=== PATIENT | female | born 1945 | race Caucasian/White ===

== ENCOUNTER → 2016-10-24 | Outpatient (CLI) | payer OTHER ==
[~2016-10-24] MED LIST: ALEVE220 M1 PO; ALIGN4 MG PO; ASPIRIN PO; AUGMENTIN400 MG PO; CALCIUM + D 6001 TA1 PO; CLARITIN10 M2 PO; CLARITIN10 M3 PO; CLARITIN10 MG PO; CLEOCIN PO; FISH OIL 1,0001 CAP PO; FLAGYL250 MG PO; FLOMAX0.4 M1 PO; FLONASE 0.05% N16 G1 NS; FLONASE16 GM; GLUCOSAMINE500 M2 PO; LEVAQUIN PO; LINZESS290 MCG PO; LIPITOR PO; LORTAB 7.5-3251 EACH PO; NORVASC PO; OMEGA Q PO; VITAMIN C500 M1 PO; VITAMIN D/CALCIUM PO; VITAMIN D1000 UNIT PO
--- NOTE | ~2016-10-24 | HM ---
Unit #: [id number] #: [id number] Patient: APRIL BLACK [id number] [address] [address] [id number] O MR#: [id number] NAME: APRIL BLACK. : 1945 SEX: F STUDY DATE/TIME: 10/24/2016 UNIT: CEKG ROOM: STUDY DESCRIPTION: Holter Attending Physician: Jr Greer M.D. Referring Physician: Jr Greer M.D. Primary Care Physician: Jr Greer M.D. CARDIOLOGY REPORT EXAM Holter monitor. DATE APPLIED 10/24/2016 DATE SCANNED 10/26/[address] rJ Greer READ BY Dr. Galan INDICATION Dysrhythmia COMMENTS The patient's Holter was monitored for 24 hours. Underlying rhythm is sinus with average heart rate of 73 beats per minute. The patient has few PVCs and PACs. No other abnormality was detected. CONCLUSION Normal Holter monitor. Dictated by... Jimenez Wolf/devika TD: 10/30/2016 04:11 JOB #: [id number] Unit #: [id number] #: [id number] Patient: APRIL BLACK CARDIOLOGY REPORT X Kodak Galan MD HOLTER MONITOR REPORT
== END | disposition home or self-care (01) ==
LOC: CEKG 09:39
DX: I49.9 Cardiac arrhythmia, unspecified (principal)
CPT/HCPCS: 93225; 93226

== ENCOUNTER → 2016-11-12 | Outpatient (CLI) | payer OTHER ==
--- NOTE | ~2016-11-12 | CT2 ---
[facility] A Service of [facility] & [facility] RADIOLOGY TEXT RESULTS PATIENT: APRIL BLACK LOCATION: CCAT : 43 UNIT #: [id number] AGE: [address]: Jesus Alexander MD SEX: F ORDER DR: [id number] [facility] [address] [place], [place] [address] [id number] O MR#: [id number] Acc #: [id number] NAME: APRIL BLACK : 1945 SEX: F STUDY DATE/TIME: 11/12/2016 10:46 UNIT: CCAT ROOM: STUDY DESCRIPTION: CT Abd and Pelv W Cont Attending Physician: Jesus Alexander M.D. Ordering Physician: Jesus Alexander M.D. Primary Care Physician: Jr Greer M.D. MEDICAL IMAGING REPORT This report is preliminary unless electronic signature is present EXAM CT abdomen and pelvis with contrast INDICATIONS Debris in urine since July 2016. Gross hematuria since July 2016. Concern for fistula. PROCEDURE Contrast-enhanced CT abdomen and pelvis. 100 mL of Isovue-370. This CT exam was performed with one or more of the following radiation dose reduction techniques: automatic exposure control, adjustment of mA and/or kV according to patient size, and iterative reconstruction. COMPARISON 08/01/2016 FINDINGS Abdomen with contrast: Included lung bases are clear. The liver, spleen, kidneys, adrenal glands, show no acute abnormality. 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 Previous cholecystectomy, no significant bile duct dilation. Sigmoid diverticulosis. There is diffuse thickening in the sigmoid colon, similar to the prior. There is a somewhat linear area of thickening with a few foci of air extending from the left inferior margin of the aqk-sm-mxibrm sigmoid colon extending towards the left side of the dome of the bladder. It measures approximately 2 cm in length. This is slightly smaller than on the previous study when it had the has appearance of a small abscess. Pelvis with contrast: A few small nodes extending from the sigmoid colon into the mesentery are similar to the prior, presumed reactive. No free pelvic fluid. There is a 7 mm calculus dependently in the bladder. There [facility] A Service of [facility] & [facility] RADIOLOGY TEXT RESULTS PATIENT: APRIL BLACK LOCATION: CCAT : 43 UNIT #: [id number] AGE: [address]: Jesus Alexander MD SEX: F ORDER DR: is a moderate amount of air in the bladder. No aggressive appearing bone lesion. IMPRESSION 1. Extensive sigmoid diverticulosis with diffuse thickening. This appearance is similar to the prior probably predominately represents chronic inflammation, but difficult to exclude an acute component. 2. Linear thick-walled structure extending from the distal sigmoid colon to the left side of the dome of the bladder contains a few tiny foci of air. There is also moderate amount of air in the bladder. This is suspicious for a patent, cold vesicle fistula. 3. Other findings detailed above. Dictated by... Hugo Buck M.D. THIS IS AN ELECTRONICALLY VERIFIED REPORT Hugo Buck M.D. at 11/13/2016 7:05 AM EED/ruby TD: 11/12/2016 13:38 JOB #: [id number] MEDICAL IMAGING REPORT Page 1 of 1 COPY
[2016-11-12 10:36] LABS: POC - CREATININE 0.82 mg/dL (0.44-1.03); POC - GFR >60.0 mL/min (>60)
== END | disposition home or self-care (01) ==
LOC: CCAT 09:08
PROVIDERS: Urology
DX: R31.0 Gross hematuria (principal); K57.30 Diverticulosis of large intestine without perforation or abscess without bleeding
CPT/HCPCS: 74177; 82565; Q9967

== ENCOUNTER 2017-01-03 05:34 | Inpatient (IN) | payer OTHER ==
--- NOTE | ~2017-01-03 | DS ---
Unit #: [id number] #: [id number] Patient: APRIL BLACK [id number] [facility]. [address] [address] [id number] I MR#: [id number] NAME: APRIL BLACK ROOM: 469 Age: 71 Sex: F Admission Date: 01/03/2017 : 1945 Discharge Date: 01/10/2017 Attending Physician: Randal Salinas Jr., M.D. Primary Care Physician: Jr Greer M.D. DISCHARGE SUMMARY HISTORY AND HOSPITAL COURSE Ms. Black is a 71-year-old female who developed colovesical fistula and was brought in the morning of surgery where she underwent sigmoid colon resection and takedown of the colovesical fistula. Postoperatively she had a generally unremarkable course. She regained bowel function without difficulty and was able to be advanced to a regular diet. She was ambulating independently. The patient had a catheter for 7 days at the recommendation of urology. At that time a cystogram showed no leak and healing of the bladder. The patient then had the Epperson catheter removed. The patient has a history of a neurogenic bladder and self caths at home. Today, she will be discharged home in stable condition. She is tolerating a diet and ambulating independently. She was told not to do any lifting or strenuous activity. She can use a laxative as needed and resume all of her home medications. She is to call the office and follow up with Dr. Salinas in 1-2 weeks. A prescription for hydrocodone was left for pain control. Patient understood these instructions and will be discharged home in stable condition. Dictated by... Keegan Carter M.D. ANA ROSA/lizandro TD: 01/11/2017 08:37 JOB #: [id number] DISCHARGE SUMMARY Page 1 of 1 X Keegan Carter MD X DISCHARGE SUMMARY
--- NOTE | ~2017-01-03 | CO ---
Unit #: [id number] #: [id number] Patient: APRIL BLACK [id number] [address] [place], [place] [address] [id number] I MR#: [id number] NAME: APRIL BLACK. ROOM: 469 Age: 71 Sex: F Admission Date: 01/03/2017 : 1945 Attending Physician: Randal Salinas Jr., M.D. Primary Care Physician: Jr Greer M.D. CONSULTATION REPORT REASON FOR HOSPITALIZATION The patient is a 71-year-old white female with history of hypertension, hiatal hernia, lumbar spinal stenosis, neurogenic bladder, chronic diverticulitis, hyperlipidemia, incomplete right bundle-branch block, multinodular goiter, irritable bowel syndrome with chronic constipation. She was recently admitted for acute kidney injury with bilateral hydronephrosis secondary to neurogenic bladder. She had a bladder pacemaker placed and intermittent catheterization since that period of time. Late last year, she developed diverticulitis that was resistant to antibiotic therapy, had multiple rounds, eventually improved, but then began to notice fiber and stool-like material in her urine, was seen by Dr. Alexander, and Dr. Salinas found her to have a colovesicular fistula and admitted for repair of same with a sigmoid resection of the area of diverticulitis. This was all performed yesterday. Currently, the patient is postop day #1, awake, alert, oriented x3, in no acute distress, and I am consulted for medical management. ALLERGIES She has stated allergies to sulfa drugs. MEDICATIONS Her medications prior to admission: Lipitor 10 mg q.h.s., aspirin 81 mg p.o. daily, Flonase 2 sprays in both nostrils daily, Linzess 290 mcg daily, vitamin D 1000 units daily, vitamin C 500 mg daily, Aleve one tablet b.i.d., Norvasc 10 mg q.h.s., Claritin 10 mg daily. PAST SURGICAL HISTORY She has had a prior right arthroscopy in the right knee, cholecystectomy, bilateral cataract surgery, bladder pacemaker, and the above-mentioned surgery that was performed yesterday for colovesicular fistula and sigmoid resection. PAST MEDICAL HISTORY Hypertension, multinodular goiter, irritable bowel syndrome, diverticulosis, diverticulitis, hyperlipidemia, lumbar spinal stenosis, incomplete right bundle-branch block. SOCIAL HISTORY . Nonsmoker, nondrinker. No street drug use. Retired. Cares for elderly , who has Parkinson syndrome. FAMILY HISTORY Noncontributory. Unit #: [id number] #: [id number] Patient: APRIL BLACK PHYSICAL EXAMINATION GENERAL: Again, she is awake, alert, and oriented x3, in no acute distress. VITAL SIGNS: T-max overnight is 100.0, pulse 87, respirations 18, blood pressure 133/53, O2 saturation 92% on 2 L. HEENT: Otherwise, unremarkable except for nasal cannula in place as well as an NG-tube to intermittent low wall suction. NECK: Supple without jugular venous distention. No carotid bruit. She has some mild thyromegaly without any prominent nodules. CHEST: Clear to auscultation. HEART: Has a regular rate and rhythm without any murmurs, rubs, or gallops. ABDOMEN: Slightly distended. Incision is dressed and dry. No bowel sounds are heard. EXTREMITIES: Show no clubbing, cyanosis, or edema. /RECTAL: Deferred. NEUROLOGIC: Grossly intact. DIAGNOSTIC STUDIES LABORATORY RESULTS: CMP this morning is within normal limits except for a random blood sugar of 176 and albumin of 1 and a resultant calcium of 8.3. CBC shows a white count of 18.3 and was otherwise within normal limits. IMPRESSION 1. Status post colovesicular fistula repair, i.e. takedown. 2. Sigmoid resection for chronic diverticulitis. 3. Neurogenic bladder. 4. Hypertension. 5. Hyperlipidemia. 6. Lumbar spinal stenosis. 7. Multinodular goiter. 8. Irritable bowel syndrome with constipation. 9. Incomplete right bundle-branch block. 10. Status post bilateral cataract surgery with lens implants. 11. Status post cholecystectomy. PLAN Incentive spirometry and pulmonary toilet. Epperson to not be removed because of the fistula. Resume home medications when able. Followup CBC for white count in the morning. Chloraseptic ordered for sore throat. She is currently on SCDs as well as Lovenox for DVT prophylaxis. Thank you for the consultation. Dictated by... Jr Greer M.D. JOSE GUADALUPE/devika TD: 01/04/2017 17:52 JOB #: [id number] Unit #: [id number] #: [id number] Patient: APRIL BLACK CONSULTATION REPORT Page 1 of 1 X Jr Greer MD CONSULTATION REPORT
--- NOTE | ~2017-01-03 | OR ---
Unit #: [id number] #: [id number] Patient: APRIL BLACK [id number] [facility]. [address] [address] [id number] I MR#: [id number] NAME: APRIL BLACK ROOM: Date of Procedure: 01/03/2017 Admission Date: 01/03/2017 Surgeon: Randal Salinas Jr., M.D. : 1945 Attending Physician: Randal Salinas Jr., M.D. Primary Care Physician: Jr Greer M.D. PROCEDURE OPERATIVE NOTE INDICATION FOR OPERATION The patient is a 71-year-old white female, who recently was having problems with urinary tract infections and was noted to have evidence of a colovesicular fistula by Dr. Alexander, her urologist. This was felt to be related to acute and chronic diverticulitis and she was treated with antibiotics and is brought in now subsequently for exploratory laparotomy, sigmoid resection, and takedown of her colovesicular fistula with primary anastomosis. The patient understands the procedure including the risk of anastomotic leak, bleeding, infection, abscess formation, and recurrence of her diverticulitis or her fistula and consents. PREOPERATIVE DIAGNOSIS Colovesicular fistula with diverticulitis. POSTOPERATIVE DIAGNOSES Colovesicular fistula with diverticulitis, noting subacute diverticulitis without abscess formation and significant inflammation in the left lower quadrant of the abdomen. There was also approximately a 2 cm fistula between the sigmoid and the posterior aspect of the bladder. ANESTHESIA General with endotracheal intubation. SURGEON Dr. Randal Salinas Jr. CO-SURGEON Dr. Alexander. PROCEDURES PERFORMED 1. Exploratory laparotomy. 2. Lysis of adhesions. 3. Mobilization of the sigmoid colon with sigmoid colon resection and takedown of colovesicular fistula with primary closure with two-layer closure by Dr. Alexander and 29 EEA anastomosis. PROCEDURE The patient was positioned in supine position after being anesthetized and intubated. He was prepped, draped in routine fashion for exploration through a midline incision. Incision was made extending to the left of the umbilicus down toward the suprapubic area. This was carried down through subcutaneous tissue, down through the linea alba of the peritoneal Unit #: [id number] #: [id number] Patient: APRIL BLACK cavity. Upon opening the peritoneal cavity, there was no free intraabdominal fluid. The remainder of the incision was opened with the cutting edge of the Bovie cautery. Anterior abdominal exploration was carried out. The patient was noted to have an inflammatory mass in the left lower quadrant abdominal wall area compatible with her chronic and subacute diverticulitis. There was also a connection with the posterior aspect of the bladder compatible with colovesicular fistula. Sigmoid colon was mobilized down in the left lower quadrant and the severe inflammatory portion was incised with a knife as well as finger fractured. After mobilizing the sigmoid colon, it was stapled proximally with a CATRACHO stapling device and mesenteric vessels were clamped, divided, and ligated with 0 silk sutures. The distal colon approximately 3 to 4 cm above the peritoneal reflection was then stapled and divided with the contoured stapler and staple line was checked and intact with no evidence of any problems. There was no evidence of any bleeding. The connection originally between the bladder and the colon was visualized and there was significant inflammatory tissue and Dr. Alexander performed operation to close this. He will be dictating that operative note. After the fistula was closed to the bladder, the pelvis was irrigated. The sigmoid colon and left colon were free all the way up toward the splenic flexure with the Bovie cautery and with the lateral peritoneal reflection being incised. After this was complete, the colon was brought down and anastomosed to the distal sigmoid colon with the 29 EEA stapler. This staple line was checked with air and noted to be intact with no evidence of any leaks under water. After all irrigation fluid was removed, the area was checked. There was no evidence of any bleeding. The staple line and anastomosis of the colon was rechecked and noted to be excellent with no evidence of any problems. The bladder closure was also intact with no evidence of any problems. After the abdomen was again copiously irrigated with saline solution, the saline solution was removed. The midline was closed with interrupted #1 Vicryl sutures as a single fascial layer closure. Subcutaneous tissue was irrigated after hemostasis achieved with the Bovie cautery. Skin was reapproximated with stainless steel skin clips, skin stapling device. Sterile dressings were applied externally. Estimated blood loss less than 200 mL. The patient received less than 2000 mL crystalloid solution during the procedure. Sponge and instrument counts correct x3. No drains used. No complications. Patient taken to the recovery room with stable vital signs in satisfactory condition. Dictated by... Randal Salinas Jr., M.D. JMB/lópez TD: 01/03/2017 12:29 JOB #: [id number] CC: Jr Greer M.D. Unit #: [id number] #: [id number] Patient: APRIL BLACK PROCEDURE OPERATIVE NOTE Page 1 of 1 X Randal Salinas MD X PROCEDURE OPERATIVE NOTE
--- NOTE | ~2017-01-03 | CR80 ---
[facility] A Service of [facility] / [facility] RADIOLOGY TEXT RESULTS PATIENT: APRIL BLACK LOCATION: [place] [address] : 43 UNIT #: [id number] AGE: [address]: Randal Salinas MD SEX: F ORDER DR: [id number] [facility] [address] [place], [place] [address] [id number] I MR#: [id number] Acc #: [id number] NAME: APRIL BLACK : 1945 SEX: F STUDY DATE/TIME: 01/08/2017 9:33 UNIT: [facility] ROOM: [facility] STUDY DESCRIPTION: CR Cystogram Min 3 Views SI Attending Physician: Randal Salinas Jr., M.D. Ordering Physician: Keegan Carter M.D. Primary Care Physician: Jr Greer M.D. MEDICAL IMAGING REPORT This report is preliminary unless electronic signature is present EXAM Cystogram INDICATIONS The patient is status post left colectomy with the bladder fistula repair on 01/03/2017. Postoperative followup. Observation for persistent fistula or bladder leak. PROCEDURE Approximately 100 mL of contrast was instilled into the bladder under fluoroscopy. A total of 6 images were obtained. Total fluoro time 0.[address] from 11/12/2016 FINDINGS No bladder mass. No evidence for fistula or bladder leak. IMPRESSION Unremarkable appearance of the bladder. No evidence for fistula or leak. Dictated by... Hugo Buck M.D. THIS IS AN ELECTRONICALLY VERIFIED REPORT Hugo Buck M.D. at 01/10/2017 10:09 PM EED/lucien TD: 01/08/2017 14:02 JOB #: [id number] [facility] A Service [facility] RADIOLOGY TEXT RESULTS PATIENT: APRIL BLACK LOCATION: [place] [address] : [birth year] UNIT #: [id number] AGE: [address]: Randal Salinas MD SEX: F ORDER DR: MEDICAL IMAGING REPORT Page 1 of 1 COPY
--- NOTE | ~2017-01-03 | OR ---
Unit #: [id number] #: [id number] Patient: APRIL BLACK [id number] [facility]. [facility] [address]. [place], [place] [address] [id number] MR#: [id number] NAME: APRIL BLACK. ROOM: Date of Procedure: 01/03/2017 Admission Date: 01/03/2017 Surgeon: Jesus Alexander M.D. : 1945 Attending Physician: Randal Salinas Jr., M.D. Primary Care Physician: Jr Greer M.D. PROCEDURE OPERATIVE NOTE Cosurgeons: Jesus Alexander M.D., Randal Salinas Jr., M.D. PREOPERATIVE DIAGNOSIS Colovesical fistula. POSTOPERATIVE DIAGNOSIS Colovesical fistula. PROCEDURE PERFORMED Closure of bladder fistula or open closure of cystotomy. PROCEDURE After informed consent, the patient was taken to the operating room and placed under general anesthetic. After sterile prepping and draping, the wound was opened and explored by Dr. Salinas. At the time I entered the procedure, the connection and adhesions between the colon and bladder were taken down sharply. The fistula between the bladder and the colon were identified and isolated. Next, Dr. Salinas resected part of the colon. I was assisting him at this point. The bladder opening was closed after debridement of the fistula tract which was done sharply by myself with Dr. Salinas assisting. The bladder closure was performed in two layers using #1 and 2-0 Vicryl in a running and interrupted fashion. The bladder was dissected through the opening. We were well away from the uterine trigone, for the left and the right. The closure was water tight. Next, Dr. Salinas, with my assistance, performed anastomosis between the sigmoid colon. I assisted on the wound closure. All counts were correct at the end of the procedure. Plan is to leave the Epperson catheter in place, at least a week, and check cystogram prior to removal. She tolerated the procedure well. Dictated by... Jesus Alexander M.D. TLB/df TD: 01/03/2017 13:01 JOB #: [id number] Unit #: [id number] #: [id number] Patient: APRIL BLACK PROCEDURE OPERATIVE NOTE Page 1 of 1 X Jesus Alexander MD PROCEDURE OPERATIVE NOTE
[~2017-01-03 05:34] MED LIST changes: -LORTAB 7.5-3251 EACH PO
[2017-01-03 06:56] LABS: BASOPHIL% 0.3 % (0-2.5); EOSINOPHIL# 0.1 X10e3 (0-0.7); EOSINOPHIL% 0.5 % (0.0-7.0); HEMATOCRIT 43.3 % (35.0-45.0); HEMOGLOBIN 14.1 gm/dL (12.0-16.0); LYMPHOCYTE# 1.2 X10e3 (1.0-3.5); LYMPHOCYTE% 9.8 % (17.0-45.0); MEAN CELL VOLUME 88.6 FL (83-96); MEAN CORPUSCULAR HEMOGLOBIN 28.7 PG (28-34); MEAN CORPUSCULAR HGB CONC 32.4 g/dL (30-36); MEAN PLATELET VOLUME 8.8 FL (6.5-11.5); MONOCYTE% 8.1 % (3.0-12.0); NEUTROPHIL# 10.3 X10e3 (1.5-7.1); NEUTROPHIL% 81.3 % (40-75); PLATELET COUNT 253 X10e3 (140-420); RED BLOOD COUNT 4.89 X10e (3.90-5.30); RED CELL DISTRIBUTION WIDTH 14.1 % (11.0-15.5); WHITE BLOOD COUNT 12.7 X10e3 (4.0-10.5)
[2017-01-03 07:01] LABS: DIFF IND NO
[2017-01-03 07:16] LABS: BUN/CREATININE RATIO 21.42; CALCIUM SERUM 9.3 mg/dL (8.4-10.2); CREATININE SERUM 0.7 mg/dL (0.6-1.4); POTASSIUM 3.8 mmol/L (3.5-5.1)
[2017-01-04 03:41] LABS: HEMATOCRIT 37.7 % (35.0-45.0); MEAN CELL VOLUME 89.1 FL (83-96); MEAN CORPUSCULAR HEMOGLOBIN 28.6 PG (28-34); MEAN CORPUSCULAR HGB CONC 32.1 g/dL (30-36); MEAN PLATELET VOLUME 8.4 FL (6.5-11.5); RED BLOOD COUNT 4.23 X10e (3.90-5.30); RED CELL DISTRIBUTION WIDTH 14.2 % (11.0-15.5); WHITE BLOOD COUNT 18.3 X10e3 (4.0-10.5)
[2017-01-04 03:43] LABS: HEMOGLOBIN 12.1 gm/dL (12.0-16.0)
[2017-01-04 04:16] LABS: BILIRUBIN,TOTAL 0.9 mg/dL (0.2-2.0); BUN/CREATININE RATIO 12.85; CALCIUM SERUM 8.3 mg/dL (8.4-10.2); CREATININE SERUM 0.7 mg/dL (0.6-1.4); POTASSIUM 4.3 mmol/L (3.5-5.1); PROTEIN TOTAL SERUM 6.1 g/dL (6.0-8.3)
[2017-01-05 02:54] LABS: BASOPHIL% 0.3 % (0-2.5); EOSINOPHIL% 0.2 % (0.0-7.0); HEMATOCRIT 37.9 % (35.0-45.0); HEMOGLOBIN 12.1 gm/dL (12.0-16.0); LYMPHOCYTE# 1.2 X10e3 (1.0-3.5); LYMPHOCYTE% 6.9 % (17.0-45.0); MEAN CELL VOLUME 89.3 FL (83-96); MEAN CORPUSCULAR HEMOGLOBIN 28.5 PG (28-34); MEAN CORPUSCULAR HGB CONC 31.9 g/dL (30-36); MEAN PLATELET VOLUME 8.4 FL (6.5-11.5); MONOCYTE# 1.1 X10e3 (0-1.0); MONOCYTE% 6.4 % (3.0-12.0); NEUTROPHIL# 14.9 X10e3 (1.5-7.1); NEUTROPHIL% 86.2 % (40-75); PLATELET COUNT 194 X10e3 (140-420); RED BLOOD COUNT 4.25 X10e (3.90-5.30); WHITE BLOOD COUNT 17.3 X10e3 (4.0-10.5)
[2017-01-05 02:55] LABS: DIFF IND YES
[2017-01-05 03:20] LABS: BUN/CREATININE RATIO 8.57; CALCIUM SERUM 8.4 mg/dL (8.4-10.2); CREATININE SERUM 0.7 mg/dL (0.6-1.4); POTASSIUM 3.9 mmol/L (3.5-5.1)
[2017-01-05 03:43] LABS: ANISOCYTOSIS SL; PLATELET ESTIMATE NORMAL (NORMAL)
[2017-01-06 03:02] LABS: BASOPHIL# 0.1 X10e3 (0-0.3); BASOPHIL% 0.4 % (0-2.5); EOSINOPHIL# 0.2 X10e3 (0-0.7); EOSINOPHIL% 1.3 % (0.0-7.0); HEMATOCRIT 35.6 % (35.0-45.0); HEMOGLOBIN 11.4 gm/dL (12.0-16.0); LYMPHOCYTE# 1.3 X10e3 (1.0-3.5); LYMPHOCYTE% 9.7 % (17.0-45.0); MEAN CELL VOLUME 89.4 FL (83-96); MEAN CORPUSCULAR HEMOGLOBIN 28.7 PG (28-34); MEAN CORPUSCULAR HGB CONC 32.1 g/dL (30-36); MEAN PLATELET VOLUME 8.8 FL (6.5-11.5); MONOCYTE% 7.7 % (3.0-12.0); NEUTROPHIL% 80.9 % (40-75); PLATELET COUNT 205 X10e3 (140-420); RED BLOOD COUNT 3.98 X10e (3.90-5.30); WHITE BLOOD COUNT 13.6 X10e3 (4.0-10.5)
[2017-01-06 03:19] LABS: DIFF IND NO
[2017-01-06 03:44] LABS: BUN/CREATININE RATIO 7.14; CALCIUM SERUM 8.4 mg/dL (8.4-10.2); CREATININE SERUM 0.7 mg/dL (0.6-1.4); POTASSIUM 3.5 mmol/L (3.5-5.1)
[2017-01-07 03:44] LABS: BASOPHIL# 0.1 X10e3 (0-0.3); BASOPHIL% 0.5 % (0-2.5); EOSINOPHIL# 0.3 X10e3 (0-0.7); EOSINOPHIL% 3.1 % (0.0-7.0); HEMATOCRIT 37.2 % (35.0-45.0); LYMPHOCYTE# 1.3 X10e3 (1.0-3.5); MEAN CELL VOLUME 89.2 FL (83-96); MEAN CORPUSCULAR HEMOGLOBIN 28.7 PG (28-34); MEAN CORPUSCULAR HGB CONC 32.2 g/dL (30-36); MEAN PLATELET VOLUME 8.7 FL (6.5-11.5); MONOCYTE# 0.9 X10e3 (0-1.0); MONOCYTE% 9.2 % (3.0-12.0); NEUTROPHIL# 7.4 X10e3 (1.5-7.1); NEUTROPHIL% 74.2 % (40-75); PLATELET COUNT 225 X10e3 (140-420); RED BLOOD COUNT 4.17 X10e (3.90-5.30); RED CELL DISTRIBUTION WIDTH 13.6 % (11.0-15.5)
[2017-01-07 03:48] LABS: DIFF IND NO
[2017-01-09 04:11] LABS: HEMATOCRIT 39.6 % (35.0-45.0); HEMOGLOBIN 12.8 gm/dL (12.0-16.0); MEAN CELL VOLUME 88.9 FL (83-96); MEAN CORPUSCULAR HEMOGLOBIN 28.8 PG (28-34); MEAN CORPUSCULAR HGB CONC 32.4 g/dL (30-36); MEAN PLATELET VOLUME 8.5 FL (6.5-11.5); RED BLOOD COUNT 4.46 X10e (3.90-5.30); RED CELL DISTRIBUTION WIDTH 13.6 % (11.0-15.5); WHITE BLOOD COUNT 9.8 X10e3 (4.0-10.5)
[2017-01-09 04:44] LABS: BUN/CREATININE RATIO 7.5; CALCIUM SERUM 9.1 mg/dL (8.4-10.2); CREATININE SERUM 0.8 mg/dL (0.6-1.4); GLOM FILT RATE Estimated 73.2 mL/min (>60); POTASSIUM 3.9 mmol/L (3.5-5.1)
[2017-01-10] MEDS ORDERED: LORTAB 7.5-3251 EACH PO (07:58)
== END 2017-01-10 09:14 | disposition home or self-care (01) | DRG 654 ==
LOC: CSUR 05:34 → CPACUOF 10:00 → CSUR 10:17 → CPACUOF 14:10 → C4C 14:10
PROVIDERS: Specialist; Surgery
PROC: 0TQB0ZZ Repair Bladder, Open Approach (ICD-10-PCS; 2017-01-03)
PROC: 0DTN0ZZ Resection of Sigmoid Colon, Open Approach (ICD-10-PCS; principal; 2017-01-03 07:30)
DX: N32.1 Vesicointestinal fistula (principal); K57.32 Diverticulitis of large intestine without perforation or abscess without bleeding; I45.10 Unspecified right bundle-branch block; K91.3 Postprocedural intestinal obstruction; I10 Essential (primary) hypertension; Z88.2 Allergy status to sulfonamides; Z91.040 Latex allergy status; E78.00 Pure hypercholesterolemia, unspecified; Z98.42 Cataract extraction status, left eye; Z98.41 Cataract extraction status, right eye; K44.9 Diaphragmatic hernia without obstruction or gangrene; Z83.3 Family history of diabetes mellitus; Z83.42 Family history of familial hypercholesterolemia; Z82.49 Family history of ischemic heart disease and other diseases of the circulatory system; Z80.3 Family history of malignant neoplasm of breast; Z81.8 Family history of other mental and behavioral disorders; Z82.62 Family history of osteoporosis; Z90.49 Acquired absence of other specified parts of digestive tract; N31.9 Neuromuscular dysfunction of bladder, unspecified; K58.1 Irritable bowel syndrome with constipation; M48.06 Spinal stenosis, lumbar region; E04.2 Nontoxic multinodular goiter; Z96.1 Presence of intraocular lens; Y83.9 Surgical procedure, unspecified as the cause of abnormal reaction of the patient, or of later complication, without mention of misadventure at the time of the procedure
CPT/HCPCS: 74430; 80048; 80053; 82947; 85025; 85027; 88305; 88307; 94760; 94761; J1650; J2250; J2270; J2405; J2543; J2710; J2765; J3010; Q9958